=== PATIENT | female | born 1955 | race Asian ===

== ENCOUNTER 2016-10-22 17:32 | Emergency (ER) | payer MEDICAID, OTHER ==
[~2016-10-22] VITALS: Ht 152.4 cm; Wt 56.5 kg
[~2016-10-22 17:32] MED LIST: Hydrochlorothiazide PO
[2016-10-22 17:35] VITALS: Ht 152.4 cm; Wt 56.5 kg
[2016-10-22] MEDS ORDERED: morphine 4 MG/ML VIAL IV STA (21:51)
[2016-10-22] MEDS ORDERED: ONDANSETRON 4 MG INJ IV STA (21:51)
[2016-10-22] MEDS ORDERED: SOD CHLORIDE 0.9% 500 ML IV STA (21:51)
[2016-10-22] MEDS ORDERED: DIPHENHYDRAMINE 25 MG CAP PO ONE (22:00)
--- NOTE | 2016-10-22 22:13 | ERD ---
ER Documentation Chief Complaint Date/Time DATE: 10/22/16 TIME: 22:10 Chief Complaint DIZZINESS WITH HEADACHE ALL DAY, "I HAVE TUMOR IN MY HEAD" HPI This 61-year-old female presents to the ER with dizziness and a headache going on for 2 weeks. No fevers or chills. She denies chest pain abdominal pain shortness of breath and nausea. The dizziness is lightheadedness and she does not have vertigo. For the last several weeks she has felt unsteady when she is walking but not when she is driving. 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 Last MRI at the stated the tumor was stable. Her headache is generalized and similar to the headache that she almost always has. She also reports itchiness of her upper back. ROS All systems reviewed and are negative except as per history of present illness. Medications Home Meds Active Scripts [Hydrochlorothiazide] No Conflict Check, 12.5 MG PO DAILY, #30 Prov:RAMÍREZ MANDEL MD 10/16/14 Allergies Allergies: Uncoded Allergies: SEAFOOD (Allergy, Mild, hives/swelling, 02/14/11) PMhx/Soc History of Surgery: Yes (3x c section) Anesthesia Reaction: No Hx Neurological Disorder: No Hx Respiratory Disorders: No Hx Cardiac Disorders: No Hx Psychiatric Problems: No Hx Miscellaneous Medical Probl: No (BRAIN TUMOR) Hx Alcohol Use: No Hx Substance Use: No Hx Tobacco Use: No Smoking Status: Unknown if ever smoked Physical Exam Vitals Vital Signs Date Time Temp Pulse Resp B/P Pulse Ox O2 Delivery O2 Flow Rate FiO2 10/22/16 17:35 97.5 66 18 182/83 99 Physical Exam Const: [] No acute distress Head: Atraumatic Eyes: Normal Conjunctiva, EOMI, PRL ENT: Normal External Ears, Nose and Mouth. Neck: Full range of motion..~ No meningismus. Resp: Clear to auscultation bilaterally Cardio: Regular rate and rhythm, no murmurs Abd: Soft, non tender, non distended. Normal bowel sounds Skin: No petechiae or rashes Back: No midline or flank tenderness Ext: No cyanosis, or edema, distal pulses intact all 4 extremities Neur: Awake and alert and oriented 3, finger to nose cerebellar testing normal, cranial nerves II through XII intact Psych: Normal Mood and Affect Result Diagram: 10/22/16220210/22/162202 Results 24 hrs Laboratory Tests Test 10/22/16 19:48 10/22/16 22:03 10/22/16 22:17 Bedside Glucose 104mg/dL White Blood Count 8.710^3/ul Red Blood Count 6.3910^6/ul Hemoglobin 13.1g/dl Hematocrit 42.6% Mean Corpuscular Volume 66.7fl Mean Corpuscular Hemoglobin 20.5pg Mean Corpuscular Hemoglobin Concent 30.8g/dl Red Cell Distribution Width 16.8% Platelet Count 32974^3/UL Mean Platelet Volume 9.0fl Neutrophils % 57.1% Lymphocytes % 33.4% Monocytes % 6.1% Eosinophils % 2.2% Basophils % 0.9% Nucleated Red Blood Cells % 0.0/100WBC Neutrophils # (Manual) 510^3/ul Lymphocytes # 2.910^3/ul Monocytes # 0.510^3/ul Eosinophils # 0.210^3/ul Basophils # 0.110^3/ul Nucleated Red Blood Cells # 0.010^3/ul Prothrombin Time 12.0Sec Prothrombin Time Ratio 0.9 INR International Normalized Ratio 0.89 Activated Partial Thromboplast Time 31.1Sec Sodium Level 143mmol/L Potassium Level 3.9mmol/L Chloride Level 104mmol/L Carbon Dioxide Level 28mmol/L Anion Gap 15 Blood Urea Nitrogen 15mg/dl Creatinine 0.69mg/dl Glucose Level 112mg/dl Calcium Level 9.6mg/dl Total Bilirubin 0.2mg/dl Direct Bilirubin 0.00mg/dl Indirect Bilirubin 0.2mg/dl Aspartate Amino Transf (AST/SGOT) 18IU/L Alanine Aminotransferase (ALT/SGPT) 29IU/L Alkaline Phosphatase 112IU/L Troponin I < 0.012ng/ml Total Protein 8.4g/dl Albumin 4.6g/dl Globulin 3.80g/dl Albumin/Globulin Ratio 1.21 Urine Color COLORLESS Urine Clarity CLEAR Urine pH 6.0 Urine Specific Flushing 1.003 Urine Ketones NEGATIVEmg/dL Urine Nitrite NEGATIVEmg/dL Urine Bilirubin NEGATIVEmg/dL Urine Urobilinogen NEGATIVEmg/dL Urine Leukocyte Esterase 1+Adin/ul Urine Microscopic RBC 1/HPF Urine Microscopic WBC 5/HPF Urine Hemoglobin NEGATIVEmg/dL Urine Glucose NEGATIVEmg/dL Urine Total Protein NEGATIVEmg/dl Current Medications Medications (Trade) Dose Ordered Sig/Andressa Route PRN Reason Start Time Stop Time Status Last Admin Dose Admin Sodium Chloride (NS) 500 ml @ 500 mls/hr Q1H STAT IV 10/22/16 21:51 10/22/16 22:50 DC 10/22/16 22:04 Morphine Sulfate (morphine) 4 mg ONCE STAT IV 10/22/16 21:51 10/22/16 21:56 DC 10/22/16 22:05 Ondansetron HCl (Zofran Inj) 4 mg ONCE STAT IV 10/22/16 21:51 10/22/16 21:56 DC 10/22/16 22:05 Diphenhydramine HCl (Benadryl) 25 mg ONCE ONCE PO 10/22/16 22:00 10/22/16 22:01 DC 10/22/16 22:05 Procedures/MDM Urinary tract infection possibly causing mild dizziness. Patient was given a gram of cefepime in the emergency room. Is being followed for a small pituitary tumor but this is not visually CAT scan. There is no hemorrhage. She has no signs of any cardiac ischemia currently. I am going to discharge her with ciprofloxacin and naproxen. She was given 500 cc of normal saline as well as emergency room and she is feeling much better. She is also given morphine which helped with her pain greatly. I gave her a Benadryl p.o. for her itching which resolved as well. Primary care follow-up in 2-3 days. EKG interpretation: Normal sinus rhythm rate of 63, normal axis, normal intervals, normal EKG. No ST or T-wave changes concerning for acute ischemia. pvc monitor interpretation: Normal sinus rhythm without arrhythmia CT head interpretation: No acute process, no hemorrhage, no mass-effect, no midline shift, no skull fracture. Departure Diagnosis: Primary Impression: UTI (urinary tract infection) Additional Impression: Lightheadedness Condition: Stable JW SIMONS DO Oct 22, 2016 22:13
[2016-10-22 22:18] LABS: BASOPHIL # 0.1 10^3/ul (0.0-0.1); BASOPHILS % 0.9 % (0.0-2.0); EOSINOPHILS # 0.2 10^3/ul (0.0-0.5); EOSINOPHILS % 2.2 % (0.0-7.0); HEMATOCRIT 42.6 % (37.0-47.0); HEMOGLOBIN 13.1 g/dl (12.0-16.0); LYMPHOCYTES # 2.9 10^3/ul (0.8-2.9); LYMPHOCYTES % 33.4 % (15.0-51.0); MEAN CORPUSCULAR HEMOGLOBIN 20.5 pg (29.0-33.0); MEAN CORPUSCULAR HGB CONC 30.8 g/dl (32.0-37.0); MEAN CORPUSCULAR VOLUME 66.7 fl (82.0-101.0); MONOCYTE # 0.5 10^3/ul (0.3-0.9); MONOCYTES % 6.1 % (0.0-11.0); NEUTROPHILS % 57.1 % (39.0-77.0); PLATELET COUNT 352 10^3/UL (140-415); RED BLOOD COUNT 6.39 10^6/ul (4.20-5.40); RED CELL DISTRIBUTION WIDTH 16.8 % (11.5-14.5); WHITE BLOOD COUNT 8.7 10^3/ul (4.8-10.8)
[2016-10-22 22:35] LABS: ALANINE AMINOTRANSFERASE 29 IU/L (13-69); ALBUMIN 4.6 g/dl (3.3-4.9); ALBUMIN/GLOBULIN RATIO 1.21; ALKALINE PHOSPHATASE 112 IU/L (42-121); ANION GAP 15 (8-16); ASPARTATE AMINO TRANSFERASE 18 IU/L (15-46); BILIRUBIN,INDIRECT 0.2 mg/dl (0-1.1); BILIRUBIN,TOTAL 0.2 mg/dl (0.2-1.3); BLOOD UREA NITROGEN 15 mg/dl (7-20); CALCIUM 9.6 mg/dl (8.4-10.2); CARBON DIOXIDE 28 mmol/L (21-31); CHLORIDE 104 mmol/L (97-110); CREATININE 0.69 mg/dl (0.44-1.00); GLUCOSE 112 mg/dl (70-220); POTASSIUM 3.9 mmol/L (3.5-5.1); SODIUM 143 mmol/L (135-144); TOTAL PROTEIN 8.4 g/dl (6.1-8.1)
[2016-10-22 22:44] LABS: ADD UMIC YES; UR ASCORBIC ACID NEGATIVE (NEGATIVE); UR BILIRUBIN (Dip) NEGATIVE (NEGATIVE); UR BLOOD (Dip) NEGATIVE (NEGATIVE); UR CLARITY CLEAR (CLEAR); UR COLOR COLORLESS (YELLOW); UR GLUCOSE (Dip) NEGATIVE (NEGATIVE); UR KETONES (Dip) NEGATIVE (NEGATIVE); UR LEUKOCYTE ESTERASE (Dip) 1+ Leu/ul (NEGATIVE); UR NITRITE (Dip) NEGATIVE (NEGATIVE); UR RBC 1 /HPF (0-5); UR SPECIFIC GRAVITY (Dip) 1.003 (1.003-1.030); UR TOTAL PROTEIN (Dip) NEGATIVE (NEGATIVE); UR UROBILINOGEN (Dip) NEGATIVE (NEGATIVE)
[2016-10-22 22:48] LABS: TROPONIN-I < 0.012 ng/ml (0.00-0.12)
--- NOTE | 2016-10-22 23:09 | RADRPT ---
PROCEDURE: CT Head without. CLINICAL INDICATION: Headache, brain tumor. TECHNIQUE: The study was performed utilizing a multi-slice, multidetector CT scanner. Direct spira l 1 mm axial sections were obtained through the head without the use of intravenous contrast materia l. 1 or more of the following dose reduction techniques were utilized: Automated exposure control, adjustment of the mA and/or kV according to patient's size, iterative reconstruction technique. Co swati and sagittal reformations were obtained. The images were reviewed on a PACS workstation. RADIATION DOSE: CTDIvol: 44.4 mGyDLP: 720.2 mGy-cm COMPARISON: None available at the time of dictation. FINDINGS: There is no intracranial hemorrhage, extra-axial fluid collection, mass lesion, midline shift or hyd rocephalus. The ventricles, sulci and cisterns are within normal limits. The white matter is unrem arkable. The barrett-white matter differentiation is preserved. The basal cisterns are patent. The m idline structures are intact. There are postoperative changes from left frontal craniotomy with annie te and screw device fixation. There is mild dural thickening beneath the craniotomy defect. There is no significant encephalomalacia involving the left anterolateral frontal lobe. The orbits, kehinde rium and extracranial soft tissues are normal in appearance. The visualized paranasal sinuses, masto id air cells and middle ear cavities are normally aerated. IMPRESSION: 1. No acute intracranial abnormality. No intracranial hemorrhage, extra-axial fluid collection, ma ss lesion or hydrocephalous. 2. Postoperative changes from left frontal craniotomy, without evidence of encephalomalacia involvi ng the left anterior frontal lobe. 3. No evidence of intracranial mass. If clinical concern for intracranial mass recurrence, MRI wit h and without contrast may be helpful for further evaluation. RPTAT: HGAS .Alistair Martinez MD, MD Date Time Electronically viewed and signed by .Alistair Martinez MD, on 10/22/2016 23:09 .S/
[2016-10-22 23:13] LABS: INR 0.89; PT RATIO 0.9
[2016-10-22 23:14] LABS: PARTIAL THROMBOPLASTIN TIME 31.1 Sec (25.0-35.0)
[2016-10-23] MEDS ORDERED: CIPR500T4 PO (00:57)
[2016-10-23] MEDS ORDERED: NAPR-688 PO (00:57)
[2016-10-23] MEDS ORDERED: CEFEPIME 1GM/50 ML (PMX) 50 ML IVPB ONE (01:00)
[2016-10-23] MEDS ORDERED: LANC1KIT83 MC (01:42)
[2016-10-23 02:35] VITALS: BP 161/88; PULSE 70
== END 2016-10-23 02:35 | disposition home or self-care (01) ==
LOC: E/R 17:32
DX: N39.0 Urinary tract infection, site not specified (principal)
CPT/HCPCS: 36415; 70450; 80053; 81001; 82962; 84484; 85025; 85610; 85730; 93005; 96374; 96375; J0692; J2270; J2405; J7040; Z7502; Z7610